=== PATIENT | female | born 2000 | race Caucasian/White ===

== ENCOUNTER 2019-05-06 05:18 | Inpatient (IN) | payer MEDICAID ==
[2019-05-06] VITALS (72 sets, daily range): BP systolic 126–172; BP diastolic 60–101
[~2019-05-06] VITALS: Ht 160 cm; Wt 84.6 kg
[~2019-05-06 05:18] MED LIST: D5 LR IV SOLUTION 1,000 ML IV ONE
--- NOTE | 2019-05-06 05:24 | NUR ---
LEROY GOODE presented to unit via ambulation from ED, accompanied by s.o. for induction of labor. LEROY GOODE weighed, gowned, voided, and to bed. EFHM and TOCO applied, VS taken. LEROY GOODE oriented to bed controls, call light, TV, heat, and A/C controls.
[2019-05-06] MEDS ORDERED: PREN-142 PO (05:25)
[2019-05-06] MEDS ORDERED: CATHETER FLUSH 10 ML SYR IV PRN (05:30)
[2019-05-06] MEDS ORDERED: MINERAL OIL CONCENTRATE 99.9% 15 ML UDC TOP PRN (05:30)
[2019-05-06] MEDS: D5 LR IV SOLUTION 1,000 ML IV SCH ×3 (05:44→21:38)
[2019-05-06 05:50] LABS: BASOPHILS % (AUTO) 0 % (0-10); EOSINOPHILS # (AUTO) 0.2 10^3/uL (0.0-0.3); EOSINOPHILS % (AUTO) 2 % (0-10); HEMATOCRIT 38 % (35-52); HEMOGLOBIN 12.9 G/DL (11.5-16.0); LYMPHOCYTES # (AUTO) 2.8 X 10^3 (1.0-4.0); LYMPHOCYTES % (AUTO) 25 % (12-44); MEAN CORPUSCULAR HEMOGLOBIN 32 PG (25-34); MEAN CORPUSCULAR HGB CONC 34 G/DL (32-36); MEAN CORPUSCULAR VOLUME 92 FL (80-99); MEAN PLATELET VOLUME 10.3 FL (7.4-10.4); MONOCYTES % (AUTO) 9 % (0-12); NEUTROPHILS # (AUTO) 7.2 X 10^3 (1.8-7.8); NEUTROPHILS % (AUTO) 64 % (42-75); PLATELET COUNT 199 10^3/uL (130-400); RED CELL DISTRIBUTION WIDTH 13.5 % (10.0-14.5); WHITE BLOOD COUNT 11.2 10^3/uL (4.3-11.0)
[2019-05-06] MEDS ORDERED: LACTATED RINGERS 1,000 ML IV ONE ×7 (07:14→10:53)
[2019-05-06] MEDS ORDERED: SUFENTA 0.6MCG/ML BUPIVA 0.125 100 ML ONE ×2 (07:14→16:54)
[2019-05-06] MEDS ORDERED: OXYTOCIN PRE-MIX DRIP 500 ML IV ONE (07:14)
--- NOTE | 2019-05-06 07:53 | History & Physical-OB/GYN ---
History of Present Illness History of Present Illness Reason for visit/HPI Pitocin induction of labor at 40 1/7 weeks Date of Admission May 06, 2019 at 05:18 Date Seen by a Provider: May 06, 2019 Time Seen by a Provider: 07:25 I consulted on this patient on 05/06/19 07:47 Attending Physician Dakota Baltazar DO Admitting Physician Dakota Baltazar DO Consult Allergies and Home Medications Allergies Coded Allergies: No Known Drug Allergies (Unverified , 05/06/19) Home Medications Vit No.124/Iron/FA 1 Each Tablet, 1 EACH PO DAILY, (Reported) Patient Home Medication List Home Medication List Reviewed: Yes Past Gidcxrj-Namlir-Eekpjv Hx Patient Social History Marrital Status: single Number of Children: 0 Number of living children: 0 Employed/Student: unemployed Alcohol Use: Denies Use Smoking Status: Never a Smoker Recent Foreign Travel: No Contact w/other who traveled: No Seasonal Allergies Seasonal Allergies: No Surgeries No Respiratory No Currently Using CPAP: No Currently Using BIPAP: No Cardiovascular No Neurological No Reproductive System : Yes Expected Date of Delivery: May 05, 2019 Hx : 1 Hx Para: 0 Hx Total # of Abortions (Spona: 0 Hx Reproductive Disorders: No Genitourinary No Gastrointestinal No Musculoskeletal No Endocrine History of Endocrine Disorders: No HEENT History of HEENT Disorders: No Loss of Vision: Denies Hearing Impairment: Denies Cancer No Integumentary History of Skin or Integumenta: No Blood Transfusions History of Blood Disorders: No Adverse Reaction to a Blood Tr: No Reviewed Nursing Assessment Reviewed/Agree w Nursing PMH: Yes Review of Systems Constitutional: see HPI Physical Exam Physical Exam Vital Signs Vital Signs Date Time Temp Pulse Resp B/P (MAP) Pulse Ox O2 Delivery O2 Flow Rate FiO2 05/06/19 22:35 38.0 05/06/19 22:30 38.0 97 18 149/78 (101) 96 Room Air 05/06/19 22:15 100 18 149/80 (103) 95 Room Air 05/06/19 22:00 104 18 147/70 (95) 95 Room Air 05/06/19 21:50 100 18 148/68 (94) 95 Room Air 05/06/19 21:45 100 18 146/72 (96) 95 Room Air 05/06/19 21:40 100 18 147/77 (100) 96 Room Air 20 21:35 100 18 157/78 (104) 97 Room Air 05/06/19 21:30 37.6 100 18 158/79 (105) 97 Room Air 20 21:15 101 18 147/72 (97) 97 Room Air 20 21:00 99 18 138/79 (98) 96 Room Air 20 20:45 99 18 143/84 (103) 96 Room Air 20 20:30 100 18 141/94 (110) 96 Room Air 20 20:15 93 18 139/76 (97) 96 Room Air 20 20:00 96 18 134/82 (99) 96 Room Air 05/06/19 19:45 37.4 102 18 142/90 (107) 98 Room Air 05/06/19 19:30 105 18 146/84 (104) 98 Room Air 05/06/19 19:15 112 18 144/88 (106) 98 Room Air 05/06/19 19:00 37.1 85 18 148/76 (100) 96 Room Air 20 18:45 90 18 132/75 (94) 97 Room Air 05/06/19 18:30 87 18 140/78 (98) 95 Room Air 05/06/19 18:15 87 18 134/77 (96) 95 Room Air 05/06/19 18:00 37.4 94 18 158/77 (104) 96 Room Air 20 17:45 98 18 153/75 (101) 96 Room Air 05/06/19 17:30 37.1 96 18 172/73 (106) 96 Room Air 20 17:15 103 18 142/101 (115) 97 Room Air 20 17:00 104 18 135/81 (99) 97 Room Air 20 16:45 100 18 138/76 (96) 98 Room Air 220 16:30 37.2 100 18 142/83 (102) 96 Room Air 22420 16:15 93 18 139/91 (107) 97 Room Air 20 16:00 90 18 143/82 (102) 98 Room Air 220 15:45 98 18 143/82 (102) 97 Room Air 220 15:30 37.4 82 18 135/66 (89) 95 Room Air 05/06/19 15:15 82 18 143/66 (91) 96 Room Air 05/06/19 15:00 92 18 136/77 (96) 96 Room Air 05/06/19 14:45 82 18 136/70 (92) 96 Room Air 05/06/19 14:30 83 18 139/81 (100) 96 Room Air 05/06/19 14:15 87 18 135/66 (89) 95 Room Air 05/06/19 14:00 85 18 137/71 (93) 95 Room Air 05/06/19 13:45 37.2 76 18 144/79 (100) 96 Room Air 05/06/19 13:30 93 18 142/72 (95) 95 Room Air 05/06/19 13:15 87 18 138/82 (100) 95 Room Air 05/06/19 13:00 93 18 142/83 (102) 96 Room Air 05/06/19 12:45 85 18 147/83 (104) 95 Room Air 05/06/19 12:30 91 18 143/83 (103) 95 Room Air 05/06/19 12:15 91 18 140/82 (101) 95 Room Air 05/06/19 12:00 83 18 140/81 (100) 96 Room Air 05/06/19 11:45 37.0 89 18 163/75 (104) 95 Room Air 05/06/19 11:30 89 18 148/71 (96) 96 Room Air 05/06/19 11:15 88 18 138/69 (92) 95 Room Air 05/06/19 11:00 86 18 135/73 (93) 96 Room Air 05/06/19 10:45 85 18 142/68 (92) 96 Room Air 05/06/19 10:30 36.7 87 18 126/60 (82) 97 Room Air 05/06/19 10:15 82 18 128/94 (105) 97 Room Air 05/06/19 10:00 83 18 134/63 (86) 96 Room Air 05/06/19 09:45 92 18 136/79 (98) 95 Room Air 05/06/19 09:30 89 18 142/80 (100) 97 Room Air 05/06/19 09:15 88 18 127/71 (89) 97 Room Air 05/06/19 09:00 89 18 145/63 (90) 96 Room Air 05/06/19 08:45 93 18 155/70 (98) 99 Room Air 05/06/19 08:31 89 18 145/65 (91) 97 Room Air 05/06/19 08:30 88 18 135/60 (85) 98 Room Air 05/06/19 08:26 94 18 129/71 (90) 98 Room Air 05/06/19 08:24 107 18 142/63 (89) 98 Room Air 05/06/19 08:21 105 18 153/67 (95) 99 Room Air 05/06/19 08:15 113 18 128/68 (88) 99 Room Air 05/06/19 08:05 91 18 134/85 (101) 99 Room Air 05/06/19 07:30 36.7 05/06/19 05:40 36.6 85 18 145/84 (104) 98 Room Air 05/06/19 05:40 36.6 85 18 98 Room Air I & O 05/07/19 07:00 Intake Total 1000 ml Output Total 1475 ml Balance -475 ml Capillary Refill : Labs Laboratory Tests 05/06/19 05:35: White Blood Count 11.2H, Red Blood Count 4.08L, Hemoglobin 12.9, Hematocrit 38, Mean Corpuscular Volume 92, Mean Corpuscular Hemoglobin 32, Mean Corpuscular Hemoglobin Concent 34, Red Cell Distribution Width 13.5, Platelet Count 199, Mean Platelet Volume 10.3, Neutrophils (%) (Auto) 64, Lymphocytes (%) (Auto) 25, Monocytes (%) (Auto) 9, Eosinophils (%) (Auto) 2, Basophils (%) (Auto) 0, Neutrophils # (Auto) 7.2, Lymphocytes # (Auto) 2.8, Monocytes # (Auto) 1.0, Eosinophils # (Auto) 0.2, Basophils # (Auto) 0.0 General Appearance: No Apparent Distress, WD/WN Respiratory: Chest Non Tender, Lungs Clear, Normal Breath Sounds Cardiovascular: Regular Rate, Rhythm, No Murmur Abdominal: normal bowel sounds, non tender Assessment/Plan Assessment and Plan Assessment: Intrauterine at 40 1/7 weeks Plan: Pitocin Induction of Labor. AROM. Epidural anesthesia. I expect a normal spontaneous vaginal delivery Admission Diagnosis Admission Status: Inpatient Order (span 2 midnights) Reason for Inpatient Admission: Pitocin Induction of Labor DAKOTA BALTAZAR DO May 06, 2019 07:53
[2019-05-06] MEDS ORDERED: fentaNYL INJECTION 100 MCG/2 ML AMP ONE (08:01)
[2019-05-06] MEDS ORDERED: BUPIVACAINE 0.25% 30 ML (SENSORCAINE) VIAL ONE (08:01)
--- NOTE | 2019-05-06 08:07 | NUR ---
Evy Garza LEAD FORMER here for epidural placement. Procedure explained, consent reviewed and signed by anesthesia. Questions answered to patient's satisfaction. Time out taken to verify correct patient/procedure. Patient up to side of bed, assisted into sitting position. Betadine prep done x3 and sterile drape applied. Local done, see anesthesia record. Test dose given, see anesthesia record for drug and dosage. Epidural catheter secured in place. Epidural placement complete. Assisted back into bed, monitors adjusted. Epidural dosed, see anesthesia record. Epidural of Sufenta/Bupivicaine @ 12 cc/hr stated per pump. Patient tolerated procedure well.
[2019-05-06] MEDS: EPIDURAL (SUFENTA 0.6MCG/ML BUPIVA 0.125%) 100 ML BAG EPI PRN ×2 (08:31→17:00)
[2019-05-06] MEDS ORDERED: ONDANSETRON 4 MG/2 ML (SDV) Z0FRAN IV PRN ×3 (11:00)
[2019-05-06] MEDS ORDERED: EPIDURAL (SUFENTA 0.6MCG/ML BUPIVA 0.125%) 100 ML BAG EPI PRN ×2 (11:00)
[2019-05-06] MEDS ORDERED: NALOXONE 0.4 MG/ML 1 ML (NARCAN) VIAL IV PRN ×3 (11:00)
[2019-05-06] MEDS ORDERED: FLU QUADRIvalent (5+ YOA) 2019-2020 (AFLURIA) 0.5 ML IM ONE (11:15)
[2019-05-06] MEDS ORDERED: OXYTOCIN PRE-MIX DRIP 500 ML IV SCH (14:20)
--- NOTE | 2019-05-06 19:15 | NUR ---
Report to Maegan Patel RN.
[2019-05-07] VITALS (26 sets, daily range): BP systolic 125–181; BP diastolic 61–106
[2019-05-07] MEDS ORDERED: SUFENTA 0.6MCG/ML BUPIVA 0.125 100 ML ONE (00:53)
[2019-05-07] MEDS: EPIDURAL (SUFENTA 0.6MCG/ML BUPIVA 0.125%) 100 ML BAG EPI PRN (01:01)
[2019-05-07] MEDS ORDERED: LIDOCAINE 1% INJ 20 ML 20 ML VIAL ONE (02:19)
[2019-05-07] MEDS: OXYTOCIN PRE-MIX DRIP 500 ML IV SCH ×2 (03:30→04:02)
--- NOTE | 2019-05-07 03:39 | OB Labor & Delivery Record ---
Vag Delivery Note Vag Delivery Note Date of Delivery: 05/07/19 Preoperative Diagnosis: Milind Leong is a (20 /Para 1 / 0, Gestational Age (wks)40 1/7 Postoperative Diagnosis: Same Surgeon: MATA DAWSON Curriculum Specialist: [None] Anesthesia: [Epidural] Delivery Type: [Normal Spontaneous Vaginal Delivery ] Findings: [] Viable [Male] infant, apgars [], weight [7 lb 4 oz] Lacerations: None Intact placenta with 3 vessel cord. No nuchal cord, body cord or shoulder dystocia Estimated Blood Loss: [400] ml Complications: None Condition: Stable Description of Procedure: The patient is a 19 year old female who presented [HIMANSHU]. She was admitted and informed consent was obtained. Her labor course was remarkable for [slow progression] She progressed to complete dilatation and began to push. She was then set up for delivery. The 's head was delivered atraumatically in the [HIMANSHU] position. The shoulders and remainder of the 's body were then delivered without difficulty. Upon delivery, the head was held below the level of the perineum and the mouth and nares were bulb suctioned. The cord was doubly clamped and cut and the infant was handed off to the pediatric staff where NRP protocol was followed. An intact placenta with 3-vessel cord delivered via Chad and there was found to be minimal bleeding.~ Vigorous fundal massage was performed and the fundus was found to be firm. IV oxytocin was given. Examination of the vagina and perineum revealed no laceration. The sponge, instrument and needle counts were correct. Mom and baby were both in stable condition in the labor suite. Vitals - Labs Vital Signs - I&O Vital Signs Date Time Temp Pulse Resp B/P (MAP) Pulse Ox O2 Delivery O2 Flow Rate FiO2 05/06/19 22:35 38.0 05/06/19 22:30 38.0 97 18 149/78 (101) 96 Room Air 05/06/19 22:15 100 18 149/80 (103) 95 Room Air 05/06/19 22:00 104 18 147/70 (95) 95 Room Air 05/06/19 21:50 100 18 148/68 (94) 95 Room Air 05/06/19 21:45 100 18 146/72 (96) 95 Room Air 05/06/19 21:40 100 18 147/77 (100) 96 Room Air 20 21:35 100 18 157/78 (104) 97 Room Air 05/06/19 21:30 37.6 100 18 158/79 (105) 97 Room Air 20 21:15 101 18 147/72 (97) 97 Room Air 20 21:00 99 18 138/79 (98) 96 Room Air 20 20:45 99 18 143/84 (103) 96 Room Air 20 20:30 100 18 141/94 (110) 96 Room Air 20 20:15 93 18 139/76 (97) 96 Room Air 20 20:00 96 18 134/82 (99) 96 Room Air 05/06/19 19:45 37.4 102 18 142/90 (107) 98 Room Air 05/06/19 19:30 105 18 146/84 (104) 98 Room Air 05/06/19 19:15 112 18 144/88 (106) 98 Room Air 05/06/19 19:00 37.1 85 18 148/76 (100) 96 Room Air 20 18:45 90 18 132/75 (94) 97 Room Air 05/06/19 18:30 87 18 140/78 (98) 95 Room Air 05/06/19 18:15 87 18 134/77 (96) 95 Room Air 05/06/19 18:00 37.4 94 18 158/77 (104) 96 Room Air 20 17:45 98 18 153/75 (101) 96 Room Air 05/06/19 17:30 37.1 96 18 172/73 (106) 96 Room Air 20 17:15 103 18 142/101 (115) 97 Room Air 20 17:00 104 18 135/81 (99) 97 Room Air 20 16:45 100 18 138/76 (96) 98 Room Air 220 16:30 37.2 100 18 142/83 (102) 96 Room Air 22420 16:15 93 18 139/91 (107) 97 Room Air 20 16:00 90 18 143/82 (102) 98 Room Air 220 15:45 98 18 143/82 (102) 97 Room Air 220 15:30 37.4 82 18 135/66 (89) 95 Room Air 05/06/19 15:15 82 18 143/66 (91) 96 Room Air 05/06/19 15:00 92 18 136/77 (96) 96 Room Air 05/06/19 14:45 82 18 136/70 (92) 96 Room Air 05/06/19 14:30 83 18 139/81 (100) 96 Room Air 05/06/19 14:15 87 18 135/66 (89) 95 Room Air 05/06/19 14:00 85 18 137/71 (93) 95 Room Air 05/06/19 13:45 37.2 76 18 144/79 (100) 96 Room Air 05/06/19 13:30 93 18 142/72 (95) 95 Room Air 05/06/19 13:15 87 18 138/82 (100) 95 Room Air 05/06/19 13:00 93 18 142/83 (102) 96 Room Air 05/06/19 12:45 85 18 147/83 (104) 95 Room Air 05/06/19 12:30 91 18 143/83 (103) 95 Room Air 05/06/19 12:15 91 18 140/82 (101) 95 Room Air 05/06/19 12:00 83 18 140/81 (100) 96 Room Air 05/06/19 11:45 37.0 89 18 163/75 (104) 95 Room Air 05/06/19 11:30 89 18 148/71 (96) 96 Room Air 05/06/19 11:15 88 18 138/69 (92) 95 Room Air 05/06/19 11:00 86 18 135/73 (93) 96 Room Air 05/06/19 10:45 85 18 142/68 (92) 96 Room Air 05/06/19 10:30 36.7 87 18 126/60 (82) 97 Room Air 05/06/19 10:15 82 18 128/94 (105) 97 Room Air 05/06/19 10:00 83 18 134/63 (86) 96 Room Air 05/06/19 09:45 92 18 136/79 (98) 95 Room Air 05/06/19 09:30 89 18 142/80 (100) 97 Room Air 05/06/19 09:15 88 18 127/71 (89) 97 Room Air 05/06/19 09:00 89 18 145/63 (90) 96 Room Air 05/06/19 08:45 93 18 155/70 (98) 99 Room Air 05/06/19 08:31 89 18 145/65 (91) 97 Room Air 05/06/19 08:30 88 18 135/60 (85) 98 Room Air 05/06/19 08:26 94 18 129/71 (90) 98 Room Air 05/06/19 08:24 107 18 142/63 (89) 98 Room Air 05/06/19 08:21 105 18 153/67 (95) 99 Room Air 05/06/19 08:15 113 18 128/68 (88) 99 Room Air 05/06/19 08:05 91 18 134/85 (101) 99 Room Air 05/06/19 07:30 36.7 05/06/19 05:40 36.6 85 18 145/84 (104) 98 Room Air 05/06/19 05:40 36.6 85 18 98 Room Air I & O 05/07/19 07:00 Intake Total 1000 ml Output Total 1475 ml Balance -475 ml Labs Laboratory Tests 05/06/19 05:35: White Blood Count 11.2H, Red Blood Count 4.08L, Hemoglobin 12.9, Hematocrit 38, Mean Corpuscular Volume 92, Mean Corpuscular Hemoglobin 32, Mean Corpuscular Hemoglobin Concent 34, Red Cell Distribution Width 13.5, Platelet Count 199, Mean Platelet Volume 10.3, Neutrophils (%) (Auto) 64, Lymphocytes (%) (Auto) 25, Monocytes (%) (Auto) 9, Eosinophils (%) (Auto) 2, Basophils (%) (Auto) 0, Neutrophils # (Auto) 7.2, Lymphocytes # (Auto) 2.8, Monocytes # (Auto) 1.0, Eosinophils # (Auto) 0.2, Basophils # (Auto) 0.0 MATA DAWSON DO May 07, 2019 03:39
[2019-05-07] MEDS ORDERED: TETANUS,DIPTH,PERTUSS P/F (BOOSTRIX) 0.5 ML VIAL IM ONE (03:45)
[2019-05-07] MEDS ORDERED: BENZOCAINE/MENTHOL (DERMOPLAST) 60 ML CAN TP PRN (03:45)
[2019-05-07] MEDS ORDERED: MEASLES,MUMPS,RUBELLA 1 EA INJ SQ ONE (03:45)
[2019-05-07] MEDS ORDERED: DIBUCAINE (NUPERCAINAL) 1% OINT 30 GM TOP PRN (03:45)
[2019-05-07] MEDS ORDERED: WITCH HAZEL(TUCKS) 40 EA JAR TOP PRN (03:45)
[2019-05-07] MEDS ORDERED: ACETAMINOPHEN 500 MG TAB (TYLENOL) ONE (03:56)
[2019-05-07] MEDS ORDERED: IBUPROFEN 800 MG (MOTRIN) TAB PO ONE (03:56)
[2019-05-07] MEDS: ACETAMINOPHEN 500 MG TAB (TYLENOL) PO SCH ×4 (04:03→21:24)
[2019-05-07] MEDS: IBUPROFEN 800 MG (MOTRIN) TAB PO SCH ×3 (04:03→21:24)
[2019-05-07] MEDS ORDERED: CATHETER FLUSH 10 ML SYR IV SCH (06:00)
--- NOTE | 2019-05-07 07:21 | Anesthesia-Regional Post-Op ---
Regional Patient Condition Mental Status: Alert, Oriented x3 Circulation: Same as Pre-Op Headache: Absent Sensation: Full Recovery Motor Block: Absent Post Op Complications Complications None Follow Up Care/Instructions Patient Instructions None needed. Anesthesia/Patient Condition Patient is doing well, no complaints, stable vital signs, no apparent adverse anesthesia problems. No complications reported per nursing. PRABHU WREN CRNA May 07, 2019 07:21
[2019-05-07] MEDS: DOCUSATE SODIUM 100 MG (COLACE) CAP PO SCH ×2 (08:14→21:24)
[2019-05-07] MEDS: PRENATAL VITAMIN 1 EA TAB PO SCH (08:14)
--- NOTE | 2019-05-07 08:15 | NUR ---
THIS RN TO BEDSIDE, SELF INTRODUCED. PT RESTING. VS OBTAINED. MEDS GIVEN PO; SEE EMAR FOR FURTHER. INITIAL SHIFT ASSESSMENT COMPLETED; SEE INTERVENTION FOR FURTHER. S/O AT THE BEDSIDE. POC REVIEWED. PT HAS TO BE PROMPTED TO RESPONSE BUT DENIES ANY PAIN OR NEEDS AT THIS TIME. WILL CONTINUE TO MONITOR. CALL LIGHT WITHIN REACH.
--- NOTE | 2019-05-07 10:35 | NUR ---
PT LAYING IN BED, HOLDING . S/O AT THE BEDSIDE. ROUTINE TYLENOL GIVEN PO; SEE EMAR FOR FURTHER. PT CONTINUES TO DENY ANY NEEDS AT THIS TIME.
--- NOTE | 2019-05-07 12:34 | NUR ---
CM/SS visited with the patient and significant other for social service consult. The patient was in bed bottle feeding the baby (Pheniex). She appeared to be attentive to the baby during the visit. Her significant other was present in the room. The patient was able to communicate full sentences and follow conversation. Resources: The patient stated that she is already set up with [facility] and has [employer] with [employer] for her insurance. Her significant other stated that she gets about $700 dollars a month and that he currently works. CM/SS educated them on available resources in the area. They verbalized understanding. CM/SS discussed LEAP through [employer] and other resources they can offer due to patients significant other verbalizing needing assistance with bills. CM/SS called DCF to see if they had any available resources and they were unavailable to talk with. Will call back later. The patients significant other stated that they did already have everything at home they needed for baby. They did not express any needs in this area. Will continue to follow.
--- NOTE | 2019-05-07 12:40 | NUR ---
PT IN BED, VISITORS AT THE BEDSIDE. VS OBTAINED. MED GIVEN PO; SEE EMAR FOR FURTHER. NO NEEDS VOICED.
--- NOTE | 2019-05-07 13:30 | NUR ---
PT SITTING UP IN BED, EATING LUNCH. PT NEEDING TO GET UP TO THE BATHROOM. PT INITIALLY WOBBLY BUT VOICED THAT SHE WAS FINE, S/O STATES THAT PT DOES THIS AT HOME. PT AMBULATES WITH STAND BY ASSIST. NOTED THAT PT HAS GONE THROUGH TO HER GOWN. + VOID, + PERICARE PER PT. NEW GOWN ON. PT BACK TO BED. FUNDUS FIRM, LT CELIA NIELSEN NOTED. WILL CONTINUE TO MONITOR. PT CONTINUES EATING LUNCH, NO NEEDS VOICED. CALL LIGHT WITHIN REACH. Addendum: 05/07/19 at 1403 by YAMEL GARDUNO RN PT ACTING AND COMMUNICATING APPROPRIATELY.
[2019-05-08 01:20] VITALS: BP 120/73
[2019-05-08] MEDS: ACETAMINOPHEN 500 MG TAB (TYLENOL) PO SCH ×2 (04:20→09:37)
[2019-05-08] MEDS: IBUPROFEN 800 MG (MOTRIN) TAB PO SCH ×2 (06:08→14:13)
[2019-05-08 07:03] LABS: BASOPHILS % (AUTO) 0 % (0-10); EOSINOPHILS # (AUTO) 0.2 10^3/uL (0.0-0.3); EOSINOPHILS % (AUTO) 1 % (0-10); HEMATOCRIT 29 % (35-52); HEMOGLOBIN 9.6 G/DL (11.5-16.0); LYMPHOCYTES # (AUTO) 2.8 X 10^3 (1.0-4.0); LYMPHOCYTES % (AUTO) 18 % (12-44); MEAN CORPUSCULAR HEMOGLOBIN 31 PG (25-34); MEAN CORPUSCULAR HGB CONC 33 G/DL (32-36); MEAN CORPUSCULAR VOLUME 95 FL (80-99); MEAN PLATELET VOLUME 10.4 FL (7.4-10.4); MONOCYTES # (AUTO) 1.1 X 10^3 (0.0-1.0); MONOCYTES % (AUTO) 7 % (0-12); NEUTROPHILS # (AUTO) 11.6 X 10^3 (1.8-7.8); NEUTROPHILS % (AUTO) 74 % (42-75); PLATELET COUNT 193 10^3/uL (130-400); WHITE BLOOD COUNT 15.7 10^3/uL (4.3-11.0)
[2019-05-08] MEDS ORDERED: DCS100C PO (08:10)
[2019-05-08] MEDS ORDERED: OXC5T PO (08:10)
[2019-05-08] MEDS ORDERED: IBUP-1780 PO (08:10)
[2019-05-08] MEDS ORDERED: ACET-93 PO (08:10)
--- NOTE | 2019-05-08 08:16 | Discharge Summary ---
Diagnosis/Chief Complaint Date of Admission May 06, 2019 at 05:18 Date of Discharge May 08, 2019 Discharge Date: May 08, 2019 Discharge Time: 09:00 Admission Diagnosis Admission Diagnosis Intrauterine at 40 1/7 weeks Discharge Diagnosis Intrauterine at 40 1/7 weeks--delivered Reason Hospital Visit Pitocin induction of labor at 40 1/7 weeks Discharge Summary Hospital Course Was the Problem List Reviewed?: Yes Hospital Course Ms. Leong was admitted for scheduled Pitocin Induction of Labor. She received an Epidural for antepartum pain management. I artificially ruptured her membranes. She progressed to complete, then delivered a healthy viable male without complications. Her vital signs remained stable after delivered. The remainder of her hospitalization was unremarkable. I will discharge her to home with instructions, prescriptions and a follow up appointment. Labs Laboratory Tests 05/06/19 05:35: White Blood Count 11.2H, Red Blood Count 4.08L 05/08/19 06:25: White Blood Count 15.7H, Red Blood Count 3.09L, Hemoglobin 9.6#L, Hematocrit 29L , Neutrophils # (Auto) 11.6H, Monocytes # (Auto) 1.1H Procedures None. Discharge Physical Examination Allergies: Coded Allergies: No Known Drug Allergies (Unverified , 05/06/19) Vitals & I&Os Vital Signs Date Time Temp Pulse Resp B/P (MAP) Pulse Ox O2 Delivery O2 Flow Rate FiO2 05/08/19 01:20 36.1 92 18 120/73 (89) 96 Room Air General Appearance: Alert, Oriented X3, Cooperative HEENT: Atraumatic Respiratory: Clear to Auscultation, Normal Air Movement Cardiovascular: Regular Rate, No Murmurs Abdominal: Normal Bowel Sounds, Soft Extremities: No Clubbing, No Cyanosis Skin: No Rashes Neuro: Normal Gait, Normal Speech Psych/Mental Status: Mental Status NL Discharge Home Medications Reviewed and agree with Discharge Medication list on patient's Discharge Instruction sheet Instructions to Patient/Family Please see electronic discharge instructions given to patient. Clinical Quality Measures DVT/VTE Risk/Contraindication: Risk Factor Score Per Nursin RFS Level Per Nursing on Admit: 1=Low/No VTE PPX MATA DAWSON DO May 08, 2019 08:16
--- NOTE | 2019-05-08 09:03 | NUR ---
CM/SS follow up with patient and father or baby. The father of the baby was holding sitting in chair while the patient was in bed. CM/SS asked how they were doing this morning and the patient stated "good" but did not verbalize during the rest of this visit. The father of the baby did most of the talking. CM/SS called [facility] and talked to staff member about resources that are avaliable. She stated they could apply for LEAP (open till June 10) and donnelly assistance. CM/SS printed off a list of the additional resources/cut off times and discussed them with the patient and father of baby. He verbalized understanding. They stated they do not have any other questions or needs at this time.
[2019-05-08 09:36] VITALS: BP 138/76
[2019-05-08] MEDS: PRENATAL VITAMIN 1 EA TAB PO SCH (09:38)
[2019-05-08] MEDS: DOCUSATE SODIUM 100 MG (COLACE) CAP PO SCH (09:38)
--- NOTE | 2019-05-08 09:41 | NUR ---
PT IN BED. VS OBTAINED. MEDS GIVEN PO; SEE EMAR FOR FURTHER. INITIAL SHIFT ASSESSMENT COMPLETED; SEE INTERVENTION. CALL LIGHT WITHIN REACH. S/O @ THE BEDSIDE.
--- NOTE | 2019-05-08 11:05 | NUR ---
PT HOLDING INFANT. S/O REMAINS AT THE BEDSIDE. THIS RN INQUIRING ABOUT VACCINES. WILL RETURN SHORTLY.
--- NOTE | 2019-05-08 11:45 | NUR ---
DISCHARGE PAPERS PROVIDED AND REVIEWED WITH PT, PT VERBALIZES UNDERSTANDING. NO QUESTIONS VOICED. S/O PRESENT AND DENIES ANY QUESTIONS AT THIS TIME. PAPER SIGNED.
--- NOTE | 2019-05-08 13:00 | NUR ---
PT UP IN ROOM, NO NEEDS VOICED.
[2019-05-08 14:12] VITALS: BP 132/74
--- NOTE | 2019-05-08 15:45 | NUR ---
LEROY GOODE demonstrates understanding of discharge instructions and accurately returns instructions upon questioning. Copy of Post-Discharge Instructions and Medication Discharge Instructions given to patient. LEROY GOODE is able to manage continuing needs after discharge. Patients belongings returned to patient. Skin dry and intact; no breakdown noted. Patient discharged from [facility] on 05-08-19 at 1545. LEROY GOODE remains in room 310 with who remains hospitalized. .
--- NOTE | 2019-05-09 10:09 | Physician Query Clarification ---
PQ-Intro New Diagnosis Admission/Discharge Admission Date: May 06, 2019 at 05:18 Discharge Date: May 08, 2019 at 15:45 The medical record reflects the following clinical scenario: History/Risk Factors: Post-term delivery Clinical Findings: Hgb 12.9 > 9.6, EBL 400 cc Treatment: vitamins Question: What condition best reflects the above clinical scenario? Please document a response in the Progress Noter or Discharge Summary. 1. acute blood loss anemia 2. anemia due to dilutional anemia 3. no anemia 4. Other, with explanation of the clinical findings. 5. Clinically undetermined, no explanation for the clinical findings. PHYSICIAN RESPONSE What condition reflects above: 1 Please remember a lack of response to the above will prompt a phone page by CDI/Coding staff. In responding to this query, please exercise your independent professional judgment. The purpose of this communication is to more accurately reflect the complexity of your patients condition. The fact that a question is asked does not imply that any particular answer is desired or expected. Thank you for your timely response to this clarification. Requestors name: Eduard THIS PHYSICIAN QUERY FORM IS A PERMANENT PART OF THE MEDICAL RECORD EDUARD VELEZ May 09, 2019 10:09 MATA DAWSON DO May 13, 2019 07:06
--- OUTSIDE RECORDS SUMMARY | 2019-05-12 13:33 | XMS REPORT ---
Author Author Milind WILLS [facility] Address [address] [place] [address] Care Team Providers Care Supervisor Network Control Operators Name Role Phone JOHANN RAMSES Unavailable PROBLEMS Unknown Problems ALLERGIES No Known Allergies ENCOUNTERS Encounter Location Date Diagnosis [facility] [address] [facility] [id number] [address] [place] [id number] July, Sports physical Z02.5 ; Exer cise counseling Z71.89 and Dietary counseling Z71.3 [facility] [address] [facility] [address] [id number] [place], [place] [id number] Apr, Dental examination Z01.20 [facility] [address] [facility] [id number] [address] [place] [id number] Jan, [facility] [address] [facility] [id number] [address] [place] [phone] Jan, IMMUNIZATIONS No Known Immunizations SOCIAL HISTORY Never Assessed REASON FOR VISIT PLAN OF CARE Activity Details Follow Up PAUL Reason: VITAL SIGNS MEDICATIONS Unknown Medications RESULTS No Results PROCEDURES Procedure Date Ordered Result Body Site PROPHYLAXIS - ADULT May 08, 2017 TOPICAL FLUORIDE VARNISH May 08, 2017 INSTRUCTIONS MEDICATIONS ADMINISTERED No Known Medications
--- OUTSIDE RECORDS SUMMARY | 2019-05-12 13:33 | XMS REPORT ---
Author Author Milind VOSS [facility] [address] Address [address] [place] [address] Care Team Providers Care Health Education Teacher Name Role Phone JOSÉ VOSS Unavailable PROBLEMS Unknown Problems ALLERGIES No Known Allergies ENCOUNTERS Encounter Location Date Diagnosis [facility] [id number] [place] [id number] July, Sports physical Z02.5 ; Exer cise counseling Z71.89 and Dietary counseling Z71.3 [address] [place] [place] [place] [address] [place] [address] Apr, Dental examination Z01.20 [place] [address] [place] [id number] [place] [id number] Jan, [place] [address] [facility] [id number] [place] [phone] Jan, IMMUNIZATIONS No Known Immunizations SOCIAL HISTORY Never Assessed REASON FOR VISIT Sports physical PLAN OF CARE Activity Details Follow Up prn Reason: VITAL SIGNS Height 62.5 in 2017-07-12 Weight 129.8 lbs 2017-07-12 Temperature 98.4 degrees Fahrenheit 2017-07-12 Heart Rate 80 bpm 2017-07-12 Respiratory Rate 18 2017-07-12 BMI 23.36 kg/m2 2017-07-12 Blood pressure systolic 115 mmHg 2017-07-12 Blood pressure diastolic 70 mmHg 2017-07-12 MEDICATIONS Unknown Medications RESULTS No Results PROCEDURES Procedure Date Ordered Result Body Site AUDIOMETRY-SCREEN July 12, 2017 VISUAL ACUITY SCREEN July 12, 2017 INSTRUCTIONS MEDICATIONS ADMINISTERED No Known Medications
--- OUTSIDE RECORDS SUMMARY | 2019-05-12 13:33 | XMS REPORT | Continuity of Care Document ---
Author Organization Unknown Address Unknown Phone Unavailable Allergies Active Description Code Type Severity Reaction Onset Reported/Identified Relationship to Patient Clinical Status Yes No Known Drug Allergies [id number] Drug Allergy Unknown N/A 05/06/2019 Medications There is no data. Problems There is no data. Procedures There is no data. Results Test Result Range SUREPATH PAP RFX HPV mRNA E6/E7 - 14:39 CLINICAL INFORMATION: NRG LMP: NRG PREV. PAP: NRG PREV. BX: NRG SOURCE: Vagina NRG STATEMENT OF ADEQUACY: NRG INTERPRETATION/RESULT: NRG RESPIRATORY ASSISTANT: NRG COMMENT NRG BLOOD TPYE/RH FACTOR - 09/19/18 15:35 ABO GROUP O NRG RH TYPE RH(D) NEGATIVE NRG ANTIBODY SCREEN - 09/19/18 15:35 ANTIBODY SCREEN, RBC W/REFL ID, TITER AND AG NO ANTIBODIES DETECTED NRG SYPHILIS (RPR W/ REFLEX CONFIRMATION) - 09/19/18 15:35 RPR (DX) W/REFL TITER AND CONFIRMATORY TESTING NON-REACTIVE NON-REACTIVE HEP B SURFACE ANTIGEN - 09/19/18 15:35 HEPATITIS B SURFACE ANTIGEN NON-REACTIVE NON-REACTIVE RUBELLA IMMUNE STATUS - 09/19/18 15:35 RUBELLA ANTIBODY (IGG) 2.07 index NRG QUAD SCREEN - 12/20/18 15:51 Maternal Weight 145 lbs NRG Est'd Date of Delivery 05/13/2019 NRG TEJ Determined by LMP NRG Mother's Ethnic Origin NRG Number of Fetuses 1 NRG Insulin Depend Diabetic NO NRG Repeat Specimen NO NRG Hx Of Neural Tube Defects NO NRG Prev Down Synd NO NRG Donor Egg NO NRG Donor Age: Egg Retrieval NOT GIVEN NRG INTERPRETATION: NRG Risk for ONTD 1 IN 3389 NRG Age Risk Down Syndrome 1 IN 1180 NRG GILMA Down Syndrome Risk 1 IN 1297 NRG GILMA Trisomy 18 Risk <1 IN 5000 NRG AFP, Serum 53.0 ng/mL NRG AFP MoM 1.00 NRG Estriol, Free 2.96 ng/mL NRG Estriol MoM 1.79 NRG hCG, Serum 33.99 IU/mL NRG hCG MoM 1.63 NRG Inhibin A, Dimeric 348 pg/mL NRG Inhibin A MoM 1.92 NRG COMMENTS: NRG COMMENT NRG Calc'd Gestational Age 19.4 weeks NRG Cigarette smoker NOT GIVEN NRG GLUCOSE KAVON 1 HOUR - 02/14/19 16:49 GLUCOSE, POSTPRANDIAL/ 1 HOUR 138 mg/dL See Note: CBC - 02/14/19 16:49 WHITE BLOOD CELL COUNT 13.4 Thousand/uL 3.8-10.8 RED BLOOD CELL COUNT 3.60 Million/uL 3.8 0-5.10 HEMOGLOBIN 11.4 g/dL 11.7-15.5 HEMATOCRIT 33.9 % 35.0-45.0 MCV 94.2 fL 80.0-100.0 MCH 31.7 pg 27.0-33.0 MCHC 33.6 g/dL 32.0-36.0 RDW 11.8 % 11.0-15.0 PLATELET COUNT 259 Thousand/uL 140-400 MPV 9.8 fL 7.5-12.5 ABSOLUTE NEUTROPHILS 8884 cells/uL 1500- 7800 ABSOLUTE MONOCYTES 1099 cells/uL 200-950 ABSOLUTE EOSINOPHILS 0 cells/uL 15-500 ABSOLUTE BASOPHILS 0 cells/uL 0-200 NEUTROPHILS 66.3 % NRG LYMPHOCYTES 19.4 % NRG MONOCYTES 8.2 % NRG EOSINOPHILS 0 % NRG BASOPHILS 0 % NRG ABSOLUTE BAND NEUTROPHILS 817 cells/uL 0 -750 ABSOLUTE LYMPHOCYTES 2600 cells/uL 850-3 900 BAND NEUTROPHILS 6.1 % NRG NOTE NRG SYPHILIS (RPR W/ REFLEX CONFIRMATION) - 02/14/19 16:49 RPR (DX) W/REFL TITER AND CONFIRMATORY TESTING NON-REACTIVE NON-REACTIVE CULTURE, GROUP B STREP (VAGINAL) - 04/11 15:14 STREPTOCOCCUS, GROUP B CULTURE SEE NOTE NRG Complete blood count (CBC) with automate d white blood cell (WBC) differential - 05/06/19 05:35 Blood leukocytes automated count (number/volume) 11.2 10*3/uL 4.3-11.0 Blood erythrocytes automated count (number/volume) 4.08 10*6/uL 4.35-5.85 Venous blood hemoglobin measurement (mass/volume) 12.9 g/dL 11.5-16.0 Blood hematocrit (volume fraction) 38 % 35-52 Automated erythrocyte mean corpuscular volume 92 [ foz_us] 80-99 Automated erythrocyte mean corpuscular h emoglobin (mass per erythrocyte) 32 pg 25-34 Automated erythrocyte mean corpuscular h emoglobin concentration measurement (mass/volume) 34 g/dL 32-36 Automated erythrocyte distribution width ratio 13. 5 % 10.0- 14.5 Automated blood platelet count (count/volume) 199 10*3/uL 130-400 Automated blood platelet mean volume measurement 10.3 [foz_us] 7.4-10.4 Automated blood neutrophils/100 leukocytes 64 % 42-75 Automated blood lymphocytes/100 leukocytes 25 % 12-44 Blood monocytes/100 leukocytes 9 % 0-12 Automated blood eosinophils/100 leukocytes 2 % 0-10 Automated blood basophils/100 leukocytes 0 % 0-10 Blood neutrophils automated count (number/volume) 7.2 10*3 1.8-7.8 Blood lymphocytes automated count (number/volume) 2.8 10*3 1.0-4.0 Blood monocytes automated count (number/volume) 1. 0 10*3 0.0-1.0 Automated eosinophil count 0.2 10*3/uL 0 .0-0.3 Automated blood basophil count (count/volume) 0.0 10*3/uL 0.0-0.1 Blood type T Indirect antibody screen pa marya - 05/06/19 05:35 WRISTBAND NUMBER [id number] NRG ABO+Rh group ON NRG Blood group antibody screen NEGATIVE NR G Complete blood count (CBC) with automate d white blood cell (WBC) differential - 05/08/19 06:25 Blood leukocytes automated count (number/volume) 15.7 10*3/uL 4.3-11.0 Blood erythrocytes automated count (number/volume) 3.09 10*6/uL 4.35-5.85 Venous blood hemoglobin measurement (mass/volume) 9.6 g/dL 11.5-16.0 Blood hematocrit (volume fraction) 29 % 35-52 Automated erythrocyte mean corpuscular volume 95 [ foz_us] 80-99 Automated erythrocyte mean corpuscular h emoglobin (mass per erythrocyte) 31 pg 25-34 Automated erythrocyte mean corpuscular h emoglobin concentration measurement (mass/volume) 33 g/dL 32-36 Automated erythrocyte distribution width ratio 14. 0 % 10.0- 14.5 Automated blood platelet count (count/volume) 193 10*3/uL 130-400 Automated blood platelet mean volume measurement 10.4 [foz_us] 7.4-10.4 Automated blood neutrophils/100 leukocytes 74 % 42-75 Automated blood lymphocytes/100 leukocytes 18 % 12-44 Blood monocytes/100 leukocytes 7 % 0-12 Automated blood eosinophils/100 leukocytes 1 % 0-10 Automated blood basophils/100 leukocytes 0 % 0-10 Blood neutrophils automated count (number/volume) 11.6 10*3 1.8-7.8 Blood lymphocytes automated count (number/volume) 2.8 10*3 1.0-4.0 Blood monocytes automated count (number/volume) 1. 1 10*3 0.0-1.0 Automated eosinophil count 0.2 10*3/uL 0 .0-0.3 Automated blood basophil count (count/volume) 0.0 10*3/uL 0.0-0.1 RH IMMUNE GLOBULIN RHOPHYLAC - 05/08/19 06:25 RH IMMUNE GLOBULIN RHOPHYLAC PRSMD TRFSD 05/08/19 1113 NRG cell screen - 05/08/19 06:25 SCREEN LOT NUMBER [id number] NRG Erythrocytes./1000 erythrocytes 06/07/19 NRG Lot number [id number] NRG Hemoglobin T Hematocrit panel NEGATIVE NEGATIVE Rh immune globulin screen 1 300ug NRG Rh immune globulin screen 01/25/21 NRG Encounters ACCT No. Visit Date/Time Discharge Status Pt. Type Provider Facility Loc./Unit Complaint [id number] 05/01/2019 16:00:00 05/01/2019 23:59:5 9 CLS Outpatient YOHANA MANNING [facility] [id number] 04/11/2019 15:15:00 Document Registration [id number] 2019 16:00:00 Document Registration [id number] 12/20/2018 16:15:00 Document Registration [id number] 09/19/2018 14:30:00 Document Registration [id number] 04/10/2012 00:00:00 04/10/2012 23:59: 59 CLS Outpatient PEDRO HERNDON DDS [id number] 05/06/2019 05:18:00 020 15:45:00 DIS Inpatient KULDEEPS MATA CARRILLO [facility] INDUCTION
== END 2019-05-08 15:45 | disposition home or self-care (01) | DRG 806 ==
LOC: LDRP 05:18
PROVIDERS: ADMIT Obstetrics & Gynecology; ATTEND Obstetrics & Gynecology
PROC: 3E033VJ Introduction of Other Hormone into Peripheral Vein, Percutaneous Approach (ICD-10-PCS; 2019-05-06)
PROC: 10E0XZZ Delivery of Products of Conception, External Approach (ICD-10-PCS; principal; 2019-05-07)
DX: O48.0 Post-term pregnancy (principal); O90.81 Anemia of the puerperium; D62 Acute posthemorrhagic anemia; Z37.0 Single live birth; Z3A.40 40 weeks gestation of pregnancy; Z23 Encounter for immunization
CPT/HCPCS: 36415; 83033; 85025; 86850; 86900; 86901; 90715

== ENCOUNTER 2021-12-19 11:51 | Emergency (ER) | payer MEDICAID ==
[~2021-12-19] VITALS: Ht 160 cm; Wt 99.6 kg
[~2021-12-19 11:51] MED LIST changes: +ACET-93 PO; -D5 LR IV SOLUTION 1,000 ML IV ONE; +DOCU-239 PO; +IBUP-1780 PO; +OXC5T PO; +PREN-142 PO
--- NOTE | 2021-12-19 12:15 | ED Integumentary General ---
General Chief Complaint: Skin/Wound Problems Stated Complaint: RED SPOTS ON SKIN History of Present Illness Date Seen by Provider: Dec 19, 2021 Time Seen by Provider: 12:02 Initial Comments 21-year-old female is here with complaints of mild rash on the right shoulder blade which has been present for the past 2 days. Rash is nonpruritic, without history of insect bites. Denies any location of rash, measuring intensities, fever, abdominal pain, vomiting, diarrhea, joint pain. Patient's LMP is August 2021 and she does not know if she is . Allergies and Home Medications Allergies Coded Allergies: No Known Drug Allergies (Unverified , 05/06/19) Patient Home Medication List Home Medication List Reviewed: Yes Acetaminophen (Acetaminophen) 500 Mg Tablet, 1,000 MG PO Q6HR Prescribed by: MATA DAWSON on 05/08/19 0810 Docusate Sodium (Dok) 100 Mg Capsule, 100 MG PO BID Prescribed by: MATA DAWSON on 05/08/19 0810 Ibuprofen (Ibuprofen) 800 Mg Tablet, 800 MG PO Q8HR Prescribed by: MATA DAWSON on 05/08/19 0810 Oxycodone Hcl (Oxycodone IR) 5 Mg Tab, 5 MG PO Q6H Prescribed by: MATA DAWSON on 05/08/19 0810 Vit No.124/Iron/FA ( Vitamin Tablet) 1 Each Tablet, 1 EACH PO DAILY, (Reported) Entered as Reported by: BENJAMÍN GARRETT on 05/06/19 0525 Review of Systems Review of Systems Constitutional: no symptoms reported EENTM: no symptoms reported Respiratory: no symptoms reported Cardiovascular: no symptoms reported Gastrointestinal: no symptoms reported Genitourinary: no symptoms reported Musculoskeletal: no symptoms reported Skin: rash Psychiatric/Neurological: No Symptoms Reported Endocrine: No Symptoms Reported Hematologic/Lymphatic: No Symptoms Reported Past Atmpsol-Efntnz-Rybbxf Hx Seasonal Allergies Seasonal Allergies: No Past Medical History Surgeries: No Respiratory: No Currently Using CPAP: No Currently Using BIPAP: No Cardiac: No Neurological: No Reproductive Disorders: No Female Reproductive Disorders: Denies Sexually Transmitted Disease: No HIV/AIDS: No Genitourinary: No Gastrointestinal: No Musculoskeletal: No Endocrine: No HEENT: No Loss of Vision: Denies Hearing Impairment: Denies Cancer: No Psychosocial: No Integumentary: No Blood Disorders: No Adverse Reaction/Blood Tranf: No Family Medical History Unknown 19 FATHER 19 MOTHER Physical Exam Vital Signs Vital Signs - First Documented 12/19/21 12:01 Temp 35.3 Pulse 17 Resp 15 B/P (MAP) 157/95 (115) O2 Delivery Room Air Capillary Refill : General Appearance: WD/WN, no apparent distress HEENT: PERRL/EOMI Neck: full range of motion Gastrointestinal: non tender, soft Back: normal inspection Extremities: normal range of motion Neurologic/Psychiatric: alert, oriented x 3 Skin: normal color, warm/dry, rash (maculopapular circular lesions x 3, 1.5 cm diameter with pale center and reddish borders. No excoriation vasquez. Non-tender) Skin Problem Location: other (right posterior shoulder blade) Skin Problem Character: macules, papules Lymphatic: no adenopathy Progress/Results/Core Measures Results/Orders Lab Results Laboratory Tests Test 12/19/21 12:02 Range/Units Urine Test NEGATIVE NEGATIVE My Orders Orders - RICHARD GARCIA MD Hcg,Qualitative Urine (12/19/21 12:02) Urine Bedside (12/19/21 12:17) Vital Signs/I&O 12/19/21 12:01 Temp 35.3 Pulse 17 Resp 15 B/P (MAP) 157/95 (115) O2 Delivery Room Air Progress Progress Note : Progress Note 1. TINEA VERSICOLOR: - Clotrimazole ointment prescription - Follow up with PCP in one week - Urine HCG negative Departure Impression Primary Impression: Tinea versicolor Disposition: HOME, SELF-CARE Condition: Stable Departure-Patient Inst. Referrals: MANUEL REESE MD (PCP/Family) Primary Care Physician Patient Instructions: Tinea Versicolor Add. Discharge Instructions: Clotrimazole ointment prescription, use bid for 14 days and follow up with PCP in 7 days All discharge instructions reviewed with patient and/or family. Voiced understanding. Scripts Clotrimazole (Clotrimazole) 1 % Cream..g. 15 GM TP BID for 14 Days, #1 EA Prov: RICHARD GARCIA MD 12/19/21 RICHARD GARCIA MD Dec 19, 2021 12:15
[2021-12-19] MEDS ORDERED: CLOT15CR28 TP (12:28)
[2021-12-19 12:33] VITALS: BP 157/95
== END 2021-12-19 12:33 | disposition home or self-care (01) ==
LOC: EDUNIT# 11:51 → ER FS 11:53
DX: B36.0 Pityriasis versicolor (principal); Z32.02 Encounter for pregnancy test, result negative; Z28.310 Unvaccinated for COVID-19
CPT/HCPCS: 84703; 99282

== ENCOUNTER 2022-03-09 15:07 | Emergency (ER) | payer MEDICAID ==
[~2022-03-09] VITALS: Ht 160 cm; Wt 86.0 kg
[~2022-03-09 15:07] MED LIST changes: +CLOT15CR28 TP
--- NOTE | 2022-03-09 15:24 | ED General ---
General Chief Complaint: Skin/Wound Problems Stated Complaint: RASH Source of Information: Patient Exam Limitations: No Limitations History of Present Illness Date Seen by Provider: Mar 09, 2022 Time Seen by Provider: 15:09 Initial Comments 22yoF with no pertinent past medical history coming in due to a rash. She states for the past couple weeks she has had red spots sharp on her back, her right middle finger, and her scalp. Seem to be getting slightly larger, but very slowly. Denies any involvement in her mouth, genitals, eyes, palms, or feet. Denies any fever associated with it. Has not been on any medications. Did start using a new soap recently as well as potentially a new detergent for her close around the same time this all started. She states she was diagnosed with ringworm several months ago that looked similar and the treatment worked. Of note, her LMP was August or September, she states she has had multiple negative test. Allergies and Home Medications Allergies Coded Allergies: No Known Drug Allergies (Unverified , 05/06/19) Patient Home Medication List Home Medication List Reviewed: Yes Acetaminophen (Acetaminophen) 500 Mg Tablet, 1,000 MG PO Q6HR Prescribed by: MATA DAWSON on 05/08/19 0810 Clotrimazole (Clotrimazole) 1 % Cream..g., 15 GM TP BID Prescribed by: RICHARD GARCIA MD on 12/19/21 1228 Docusate Sodium (Dok) 100 Mg Capsule, 100 MG PO BID Prescribed by: MATA DAWSON on 05/08/19 0810 Hydroxyzine HCl (Hydroxyzine HCl) 25 Mg Tablet, 25 MG PO Q6H PRN for ITCHING Prescribed by: CESAR TAYLOR on 03/09/22 1527 Ibuprofen (Ibuprofen) 800 Mg Tablet, 800 MG PO Q8HR Prescribed by: MATA DAWSON on 05/08/19 0810 Ketoconazole (Ketoconazole) 200 Mg Tablet, 400 MG PO ONCE Prescribed by: CESAR TAYLOR on 03/09/22 1527 Oxycodone Hcl (Oxycodone IR) 5 Mg Tab, 5 MG PO Q6H Prescribed by: MATA DAWSON on 05/08/19 0810 Vit No.124/Iron/FA ( Vitamin Tablet) 1 Each Tablet, 1 EACH PO DAILY, (Reported) Entered as Reported by: BENJAMÍN GARRETT on 05/06/19 0525 Review of Systems Review of Systems Constitutional: No fever EENTM: no symptoms reported Respiratory: no symptoms reported Cardiovascular: no symptoms reported Gastrointestinal: no symptoms reported Genitourinary: no symptoms reported Musculoskeletal: no symptoms reported Skin: see HPI Psychiatric/Neurological: No Symptoms Reported Hematologic/Lymphatic: No Symptoms Reported Immunological/Allergic: no symptoms reported All Other Systems Reviewed Negative Unless Noted: Yes Past Xlhzaxc-Fjvsac-Sdnvtt Hx Patient Social History Tobacco Use?: No Substance use?: No Alcohol Use?: No Seasonal Allergies Seasonal Allergies: No Past Medical History Surgeries: No Respiratory: No Currently Using CPAP: No Currently Using BIPAP: No Cardiac: No Neurological: No Reproductive Disorders: No Female Reproductive Disorders: Denies Sexually Transmitted Disease: No HIV/AIDS: No Genitourinary: No Gastrointestinal: No Musculoskeletal: No Endocrine: No HEENT: No Loss of Vision: Denies Hearing Impairment: Denies Cancer: No Psychosocial: No Integumentary: No Blood Disorders: No Adverse Reaction/Blood Tranf: No Family Medical History Unknown 19 FATHER 19 MOTHER Physical Exam Vital Signs Capillary Refill : Height, Weight, BMI Height: '" Weight: lbs. oz. kg; 38.00 BMI Method: General Appearance: No Apparent Distress, WD/WN Eyes: Bilateral Eye Normal Inspection HEENT: PERRL/EOMI, Normal ENT Inspection, Pharynx Normal Neck: Full Range of Motion, Normal Inspection, Non Tender, Supple Respiratory: Chest Non Tender, Lungs Clear, Normal Breath Sounds, No Accessory Muscle Use, No Respiratory Distress Cardiovascular: Regular Rate, Rhythm, No Edema, Normal Peripheral Pulses Gastrointestinal: Normal Bowel Sounds, Non Tender, Soft; No Guarding Back: No CVA Tenderness Extremity: Normal Capillary Refill, Normal Inspection, Normal Range of Motion, Non Tender, No Pedal Edema Neurologic/Psychiatric: Alert, No Motor/Sensory Deficits, Normal Mood/Affect Skin: Normal Color, Warm/Dry, Rash (Areas of patchy dry erythema with some central clearing, Nikolsky negative, the over the back and scalp) Lymphatic: No Adenopathy Progress/Results/Core Measures Suspected Sepsis SIRS Temperature: Pulse: Respiratory Rate: Blood Pressure / Mean: Results/Orders My Orders Orders - CESAR TAYLOR MD Urine Bedside (03/09/22 15:28) Vital Signs/I&O Capillary Refill : Progress Note : Progress Note 22-year-old female with above history coming in due to an itchy rash. ABCs were intact and vitals were stable on presentation. She has no red flags, does not take any medications, he was otherwise well-appearing. I reviewed the patient's chart, and she was diagnosed with tinea versicolor, and sent home with fungal cream. The patient states this did help, but then it came back 2 weeks ago. This is certainly on the differential and certainly looks fungal in nature to me. Could be tinea corporis. Does not look like urticaria. It could be a delayed hypersensitivity to the new soap. I will have her switch to a nonallergic soap and detergent. We will treat this as if it is fungal for now. test here negative as well Departure Impression Primary Impression: Tinea corporis Disposition: HOME, SELF-CARE Condition: Stable Departure-Patient Inst. Decision time for Depature: 15:30 Referrals: NO,LOCAL PHYSICIAN (PCP/Family) Primary Care Physician Patient Instructions: Fungal Skin Rash (DC) Add. Discharge Instructions: You will take 1 antifungal pill, and then you can use the antifungal cream that you still have twice a day for the next couple of weeks. I would use a very ba sic moisturizer such as Cetaphil without any coloring or scent to it. I would change laundry detergent and soap to something that is nonallergenic as well. An anti-itch medicine was also sent to the pharmacy which can make you a little sleepy. It may take some time for the skin to start looking normal again even after the treatment has been effective. If things get worse within the next couple of weeks, I would want you to follow-up with your regular doctor. You may need a dermatology follow-up. Scripts Hydroxyzine HCl (Hydroxyzine HCl) 25 Mg Tablet 25 MG PO Q6H PRN for ITCHING for 5 Days, #20 TAB Prov: CESAR TAYLOR MD 03/09/22 Ketoconazole (Ketoconazole) 200 Mg Tablet 400 MG PO ONCE for 1 Day, #1 TAB Prov: CESAR TAYLOR MD 03/09/22 Work/School Note: Work Release Form Date Seen in the Emergency Department: Mar 09, 2022 Return to Work: Mar 10, 2022 Restrictions: No Restrictions CESAR TAYLOR MD Mar 09, 2022 15:24
[2022-03-09] MEDS ORDERED: HYDR-700 PO (15:27)
[2022-03-09] MEDS ORDERED: KETO200T12 PO (15:27)
[2022-03-09 16:14] VITALS: BP 145/78
== END 2022-03-09 15:43 | disposition home or self-care (01) ==
LOC: EDUNIT# 15:07 → ER FS 15:09
DX: B35.4 Tinea corporis (principal)
CPT/HCPCS: 84703; 99282

== ENCOUNTER 2022-09-14 16:03 | Emergency (ER) | payer MEDICAID ==
[~2022-09-14] VITALS: Ht 160 cm; Wt 100.0 kg
[~2022-09-14 16:03] MED LIST changes: +HYDR-700 PO; +KETO200T12 PO
[2022-09-14 16:20] VITALS: BP 144/96
[2022-09-14] MEDS ORDERED: CEPH500C PO (16:20)
--- NOTE | 2022-09-14 16:21 | ED Integumentary General ---
General Chief Complaint: Bite-Animal/Human/Insect Stated Complaint: STING ON R LEG Source: patient History of Present Illness Date Seen by Provider: Sep 14, 2022 Time Seen by Provider: 16:06 Initial Comments 21-year-old female presenting with concerns for having a sting on her right leg. 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 She thought that what ever had stung her was yellow and black so it may have been a wasp or some sort of flying insect. She had some mild pain with the sting and had applied some baking soda to it. Since yesterday its become more red and firm around the area and had some slight warmth to it. She has had no drainage and there is no fever. She denies having hives, shortness of breath, nausea, vomiting, headache, other symptoms since the sting. Timing/Duration: yesterday Severity: mild Location: extremities (right lateral thigh) Possible Cause: insect sting Modifying Factors: worse with scratching Associated Symptoms: No blisters; change in skin texture; No fever, No flushing, No headache, No hives, No jaundice, No malaise, No nasal congestion, No numbness, No pallor, No paresthesia, No petechiae, No rash, No sore throat, No swelling/mass/lumps, No tingling Allergies and Home Medications Allergies Coded Allergies: No Known Drug Allergies (Unverified , 05/06/19) Patient Home Medication List Home Medication List Reviewed: Yes Acetaminophen (Acetaminophen) 500 Mg Tablet, 1,000 MG PO Q6HR Prescribed by: MATA DAWSON on 05/08/19 0810 Cephalexin (Cephalexin) 500 Mg Capsule, 500 MG PO TID Prescribed by: NIXON HALL on 09/14/22 1620 Clotrimazole (Clotrimazole) 1 % Cream..g., 15 GM TP BID Prescribed by: RICHARD GARCIA MD on 12/19/21 1228 Docusate Sodium (Dok) 100 Mg Capsule, 100 MG PO BID Prescribed by: MATA DAWSON on 05/08/19 0810 Hydroxyzine HCl (Hydroxyzine HCl) 25 Mg Tablet, 25 MG PO Q6H PRN for ITCHING Prescribed by: CESAR TAYLOR on 03/09/22 1527 Ibuprofen (Ibuprofen) 800 Mg Tablet, 800 MG PO Q8HR Prescribed by: MATA DAWSON on 05/08/19 0810 Ketoconazole (Ketoconazole) 200 Mg Tablet, 400 MG PO ONCE Prescribed by: CESAR TAYLOR on 03/09/22 1527 Oxycodone Hcl (Oxycodone IR) 5 Mg Tab, 5 MG PO Q6H Prescribed by: MATA DAWSON on 05/08/19 0810 Vit No.124/Iron/FA ( Vitamin Tablet) 1 Each Tablet, 1 EACH PO DAILY, (Reported) Entered as Reported by: BENJAMÍN GARRETT on 05/06/19 0525 Review of Systems Review of Systems Constitutional: No chills, No fever EENTM: no symptoms reported Respiratory: no symptoms reported Cardiovascular: no symptoms reported Gastrointestinal: no symptoms reported Genitourinary: no symptoms reported Musculoskeletal: no symptoms reported Skin: see HPI Psychiatric/Neurological: No Symptoms Reported Past Ljokabi-Wripup-Fzfbnx Hx Patient Social History Tobacco Use?: No Use of E-Cig and/or Vaping dev: No Substance use?: No Seasonal Allergies Seasonal Allergies: No Past Medical History Surgeries: No Respiratory: No Currently Using CPAP: No Currently Using BIPAP: No Cardiac: No Neurological: No Reproductive Disorders: No Female Reproductive Disorders: Denies Sexually Transmitted Disease: No HIV/AIDS: No Genitourinary: No Gastrointestinal: No Musculoskeletal: No Endocrine: No HEENT: No Loss of Vision: Denies Hearing Impairment: Denies Cancer: No Psychosocial: No Integumentary: No Blood Disorders: No Adverse Reaction/Blood Tranf: No Family Medical History Unknown 19 FATHER 19 MOTHER Physical Exam Vital Signs Capillary Refill : General Appearance: WD/WN, no apparent distress HEENT: PERRL/EOMI Cardiovascular: normal peripheral pulses, regular rate, rhythm Respiratory: chest non-tender, lungs clear, normal breath sounds, no respiratory distress, no accessory muscle use Neurologic/Psychiatric: alert, oriented x 3 Skin: warm/dry Skin Problem Location: lower extremities Skin Problem Character: erythema, thickening, warm (Right lateral upper thigh has an area of increased erythema, warmth and thickening or induration. There is no fluctuance or drainage noted. There is no streaking up her leg. There is a small 2 mm central scab where she may have had a bite or sting.) Progress/Results/Core Measures Progress Progress Note : Progress Note Counseled patient that if she was having an allergic reaction she would have had symptoms before now. Since there is some increased warmth and redness after the sting or bite will prescribe a short 5-day course of cephalexin 500 mg p.o. 3 times daily to help prevent infection. Counseled that she could also apply an ice pack 15 to 20 minutes every few hours as needed to help with redness and swelling. She could take Benadryl 25 to 50 mg every 4 hours as needed for redness and itching. If she was having pain she can take Tylenol and if it still seems like it was painful and inflamed despite the Tylenol and Benadryl and ice she could try taking an NSAID such as ibuprofen or naproxen. Check back with her primary care provider for continued concerns. Departure Impression Primary Impression: Accidental insect sting Disposition: HOME, SELF-CARE Condition: Stable Departure-Patient Inst. Decision time for Depature: 16:20 Referrals: CHAZ HEATON MD (PCP/Family) Primary Care Physician Patient Instructions: Insect Bites and Stings ED Add. Discharge Instructions: Keep the area clean with soap and water. You may apply ice pack for 10 to 15 minutes a few times a day to help with swelling and inflammation. For redness and itching take Benadryl 25 to 50 mg or 1-2 [id number] pills every 4 hours as needed for the redness and itching. You may take acetaminophen or Tylenol to help with pain. If it is feeling more inflamed and the ice is not helping you could also consider taking ibuprofen or naproxen. Check back with the clinic for continued concerns. All discharge instructions reviewed with patient and/or family. Voiced understanding. Scripts Cephalexin (Cephalexin) 500 Mg Capsule 500 MG PO TID for insect sting for 5 Days, #15 CAP 0 Refills Prov: NIXON HALL MD 09/14/22 NIXON HALL MD Sep 14, 2022 16:21
== END 2022-09-14 16:25 | disposition home or self-care (01) ==
LOC: EDUNIT# 16:03 → ER FS 16:05
DX: T63.481A Toxic effect of venom of other arthropod, accidental (unintentional), initial encounter (principal)
CPT/HCPCS: 99281